=== PATIENT | male | born 1990 | race Caucasian/White ===

== ENCOUNTER 2019-11-17 13:03 | Emergency (ER) | payer BC, MEDICAID ==
[2019-11-17 14:27] VITALS: BP 127/74; PULSE 88
--- NOTE | 2019-11-17 14:59 | EDM.PDOC ---
ED HPI GENERAL MEDICAL PROBLEM - General Chief Complaint: Upper Extremity Injury/Pain Stated Complaint: INJURED RIGHT PINKY FINGER Time Seen by Provider: 11/17/19 14:31 Source of Information: Reports: Patient History Limitations: Reports: No Limitations - History of Present Illness INITIAL COMMENTS - FREE TEXT/NARRATIVE: 29-year-old male injured his right hand while tubing yesterday. Initially he was able to straighten the little finger out however today it is stiff and sore. He is unable to fully extend it or flex it. He denies any other injuries. Right Finger-Little Pain Score (Numeric/FACES): 8 - Related Data Allergies Allergy/AdvReac Type Severity Reaction Status Date / Time No Known Allergies Allergy Verified 09/02/14 13:45 Home Meds: Home Meds NK [No Known Home Meds] 09/02/14 [History] Past Medical History - Past Health History Medical/Surgical History: Denies Medical/Surgical History HEENT History: Reports: Impaired Vision - Past Surgical History HEENT Surgical History: Reports: None Dermatological Surgical History: Reports: None Social & Family History - Family History Family Medical History: Noncontributory - Tobacco Use Smoking Status *Q: Current Every Day Smoker Years of Tobacco use: 8 Packs/Tins Daily: 1 Used Tobacco, but Quit: No Second Hand Smoke Exposure: No - Caffeine Use Caffeine Use: Reports: Coffee - Alcohol Use Days Per Week of Alcohol Use: 2 Number of Drinks Per Day: 5 Total Drinks Per Week: 10 - Recreational Drug Use Recreational Drug Use: No Review of Systems - Review of Systems Review Of Systems: See Below Constitutional: Reports: No Symptoms Musculoskeletal: Reports: Other (Painful right little finger and hand.) Neurological: Reports: No Symptoms ED EXAM, GENERAL - Physical Exam Exam: See Below Exam Limited By: No Limitations Extremities: Other (He has a swollen bruised PIP and MCP J right hand. Neurovascular exam is normal.) Course - Vital Signs Text/Narrative:: This patient injured his right hand while tubing yesterday and is unable to straighten his right little finger. He has no other injuries. On exam he has a swollen and bruised right ulnar hand, MCP J and PIPJ. He is unable to extend PIPJ. Flexion is reduced but near normal. Neurovascular exam is normal. An x- ray read by me shows no fractures of the right hand. Patient was placed on a ulnar gutter splint incorporating the little finger. The patient was given a copy of his x-rays and he will travel home tomorrow and see an orthopedist on Wednesday. Last Recorded V/S: Last Vital Signs Temp 35.4 C L 11/17/19 14:32 Pulse 88 11/17/19 14:32 Resp 12 11/17/19 14:32 BP 127/74 11/17/19 14:32 Pulse Ox 98 11/17/19 14:32 - Orders/Labs/Meds Orders: Active Orders 24 hr Category Date Time Status Hand Comp Min 3V Rt [CR] Stat Exams 11/17/19 14:59 Taken Departure - Departure Time of Disposition: 15:43 Disposition: DC/[facility] to [facility] 05 Condition: Good Clinical Impression: Right hand pain - Discharge Information *PRESCRIPTION DRUG MONITORING PROGRAM REVIEWED*: No *COPY OF PRESCRIPTION DRUG MONITORING REPORT IN PATIENT SHAUNA: No Referrals: PCP,None [Primary Care Provider] - Forms: ED Department Discharge Additional Instructions: Keep the right hand in the splint until you are seen by orthopedics on Wednesday or Wednesday. Elevate your right hand to heart level to reduce pain and swelling. Use an ice pack periodically to reduce pain and swelling. Take Tylenol or ibuprofen as needed for pain. Return to the ER as needed for problems. Sepsis Event Note (ED) - Evaluation Sepsis Screening Result: No Definite Risk - Focused Exam Vital Signs: Vital Signs Temp Pulse Resp BP Pulse Ox 11/17/19 14:32 35.4 C L 88 12 127/74 98 11/17/19 14:25 35.4 C L 88 12 127/74 98 - My Orders Last 24 Hours: My Active Orders 11/17/19 14:59 Hand Comp Min 3V Rt [CR] Stat - Assessment/Plan Last 24 Hours: My Active Orders 11/17/19 14:59 Hand Comp Min 3V Rt [CR] Stat
--- NOTE | 2019-11-17 16:24 | CRLCR ---
HISTORY: Right hand injury. TECHNIQUE: Three views of the right hand. COMPARISON: No prior. FINDINGS: No acute fracture or dislocation. Joint spaces are maintained. No radiopaque foreign body or soft tissue gas. IMPRESSION: No acute fracture or dislocation. Dictated by Tunde Parson MD @ 11/17/2019 4:23:24 PM Dictated by: Tunde Parson MD @ 11/17/2019 16:23:27 (Electronically Signed)
== END 2019-11-17 16:02 | disposition designated cancer center or children's hospital (05) ==
LOC: JP.ED 13:03
DX: S60.221A Contusion of right hand, initial encounter (principal); F17.210 Nicotine dependence, cigarettes, uncomplicated; X58.XXXA Exposure to other specified factors, initial encounter
CPT/HCPCS: 29125; 73130-RT; 99283-25